=== PATIENT | female | born 1980 | race Caucasian/White ===

== ENCOUNTER 2017-04-01 16:38 | Emergency (ER) | payer BC, OTHER ==
[2017-04-01 18:34] LABS: #Basophils 0.1 thou/uL (0.0-0.2); #Eosinphils 0.3 thou/uL (0.0-0.7); #Lymphocytes 2.2 thou/uL (1.20-3.40); #Monocytes 0.6 thou/uL (0.11-0.59); #Neutrophils 4.7 thou/uL (1.40-6.50); %Basophils 0.8 % (0.0-1.0); %Eosinophils 4.4 % (0.0-10.0); %Lymphocytes 28.3 % (21.0-51.0); %Monocytes 7.3 % (0.0-10.0); %Neutrophils 59.1 % (42.0-75.0); Hemoglobin 13.3 g/dL (12.0-16.0); Mean Corpuscular HGB CONC 32.8 g/dL (32.0-36.0); Mean Corpuscular Hemoglobin 30.2 pg (27.0-31.0); Mean Corpuscular Volume 92.1 fl (81.0-99.0); Mean Platelet Volume 7.2 fL (7.4-10.4); Platelet Count 252 thou/uL (130-400); RBC Distribution Width 11.6 % (11.5-14.5); Red Blood Cell (RBC) Count 4.42 mill/uL (4.20-5.40); White Blood Cell (WBC) Count 7.9 thou/uL (4.8-10.8)
[2017-04-01 18:40] LABS: BHCG - Serum Negative (NEGATIVE); Pregs Control Background? CLEAR/WHITE (CLR/WHITE); Pregs Control Bar Appear? YES (CONTROL BAR)
[2017-04-01] MEDS ORDERED: HYDROcodone/Acetaminophen 5/325 mg Tablet ONE (21:22)
--- NOTE | 2017-04-01 22:54 | ULT ---
PELVIC ULTRASOUND: 04/01/17 Endovaginal ultrasound of pelvis performed. HISTORY: Vaginal bleeding. The uterus is retroverted. The uterus is unremarkable in appearance. Endometrial strip appears normal measured at 4 to 5 mm. Both ovaries show follicular cysts and appear unremarkable. Color doppler wit h spectral analysis demonstrates normal and equal blood flow to both ovaries. No fluid seen. IMPRESSION: 1. Retroverted uterus. 2. Unremarkable pelvic ultrasound. POS: [facility]
== END 2017-04-01 23:45 | disposition home or self-care (01) ==
LOC: ERS 16:38
DX: N94.6 Dysmenorrhea, unspecified (principal)
CPT/HCPCS: 36415; 76856; 84703; 85025; 86850; 86900; 86901; 93976

== ENCOUNTER 2019-05-06 11:41 | Emergency (ER) | payer BC, SELFPAY ==
[2019-05-06] MEDS ORDERED: Ondansetron PF 4 MG/2 ML Vial ONE (12:15)
[2019-05-06] MEDS ORDERED: Ketorolac Tromethamine 30 MG/ML VIAL ONE (12:15)
[2019-05-06 12:36] LABS: Hemoglobin 14.6 g/dL (12.0-16.0); Mean Corpuscular HGB CONC 33.3 g/dL (32.0-36.0); Mean Corpuscular Hemoglobin 31.6 pg (27.0-31.0); Mean Corpuscular Volume 95.1 fL (78.0-98.0); Mean Platelet Volume 8.3 fL (7.4-10.4); Platelet Count 212 thou/uL (130-400); RBC Distribution Width 11.8 % (11.5-14.5); White Blood Cell (WBC) Count 7.1 thou/uL (4.8-10.8)
[2019-05-06 12:51] LABS: Eosinophils 1 % (0-10); Hypersemented Neutrophil SLIGHT; Large Platelets SLIGHT; Lymphocytes 29 % (21-51); MDiff Complete? YES; Monocytes 1 % (0-10); Neutrophil 69 % (42-75); Platelet Morphology Comment Appears Adequate
[2019-05-06 12:56] LABS: ALT (SGPT) 23 U/L (8-55); AST (SGOT) 19 U/L (5-34); Albumin 4.1 g/dL (3.5-5.0); Alkaline Phosphatase 48 U/L (40-110); Anion Gap 11 mmol/L (10-20); BUN (Urea Nitrogen) 11 mg/dL (7.0-18.7); Bilirubin, Total 2.1 mg/dL (0.2-1.2); Calc. Creatinine Clearance 0 mL/min (70-130); Calcium 9.4 mg/dL (7.8-10.44); Carbon Dioxide 21 mmol/L (22-29); Chloride 108 mmol/L (98-107); Estimated GFR-MDRD 75; Glucose 84 mg/dL (70-105); Lipase 40 U/L (8-78); Potassium 4.3 mmol/L (3.5-5.1); Protein, Total 7.1 g/dL (6.0-8.3); Sodium 136 mmol/L (136-145)
[2019-05-06 13:53] LABS: Bilirubin Negative (Negative); Blood, Urine 3+ (Negative); Clarity Turbid (Clear); Glucose, Urine (Dipstick) Normal (Negative); Leukocyte 75 Leu/uL (Negative); Nitrite Negative (Negative); Protein, Urine (Dipstick) Negative (Neg-Trace); RBC/HPF Greater than 50 HPF (0-3); Squamous Epithelial None Seen HPF (0-3); Urobilinogen Normal mg/dL (Less than 2)
[2019-05-06 13:55] LABS: Pregnancy Test - Urine (BHCG) Negative (Negative); Pregu Control Background? CLEAR/WHITE (CLR/WHITE); Pregu Control Bar Appear? YES (CONTROL BAR); Specific Gravity 1.012 (1.002-1.036)
[2019-05-06 14:02] LABS: Bacteria/HPF None Seen HPF (None Seen)
== END 2019-05-06 13:45 | disposition home or self-care (01) ==
LOC: ERS 11:41
DX: N93.9 Abnormal uterine and vaginal bleeding, unspecified (principal); R42 Dizziness and giddiness; D64.9 Anemia, unspecified
CPT/HCPCS: 36415; 80053; 81003; 81015; 81025; 83690; 85025; 86850; 86900; 86901; 93005; 96361; 96374; 96375; J1885; J2405

== ENCOUNTER 2019-08-07 05:35 | Day surgery (SDC) | payer OTHER ==
[2019-08-03 13:38] VITALS: BMI 27.4
[2019-08-03 14:30] LABS: Hemoglobin 15.2 g/dL (12.0-16.0); Mean Corpuscular HGB CONC 32.5 g/dL (32.0-36.0); Mean Corpuscular Hemoglobin 30.2 pg (27.0-31.0); Mean Corpuscular Volume 92.8 fL (78.0-98.0); Mean Platelet Volume 7.2 fL (7.4-10.4); Platelet Count 242 thou/uL (130-400); RBC Distribution Width 11.6 % (11.5-14.5); Red Blood Cell (RBC) Count 5.02 mill/uL (4.20-5.40); White Blood Cell (WBC) Count 9.3 thou/uL (4.8-10.8)
[2019-08-03 14:38] LABS: BHCG - Serum Negative (NEGATIVE); Pregs Control Background? CLEAR/WHITE (CLR/WHITE); Pregs Control Bar Appear? YES (CONTROL BAR)
[2019-08-04 19:51] LABS: SARS-CoV-2 MS2 Positive; SARS-CoV-2 N Gene Negative; SARS-CoV-2 S Gene Negative; SARS-CoV-2 orf1ab Negative
--- NOTE | 2019-08-06 09:34 | HP ---
PRESENTING COMPLAINT: Menorrhagia, dysmenorrhea, and stress urinary incontinence. SCHEDULED PROCEDURE: Total laparoscopic hysterectomy, right salpingectomy, and possible mid urethral sling with cystourethroscopy. HISTORY OF PRESENT ILLNESS: Ms. Cordero is a 38-year-old 5, para 3, AB 2, ectopic 1, status post left salpingectomy, status post bilateral tubal ligation. She has a long history of menorrhagia and heavy periods, have been unresponsive to medical management. The patient desires definitive management. Of note, the patient mentioned to the office and preop is that something was going to be done to her bladder for incontinence. Upon review of the chart, the patient did not mention incontinence since 2017 in her annual exam, however, her exam and description of her incontinence were consistent with stress urinary incontinence. Incontinence will be further characterized and discussed at the a.m. of surgery, and we will likely proceed with mid urethral sling with Advantage Fit and cystourethroscopy. SOCIAL MEDIA STRATEGIST HISTORY: As noted. No history of dysplasia. Negative Pap in May of 2019. PAST MEDICAL HISTORY: None. PAST SURGICAL HISTORY: As noted in the SOCIAL MEDIA STRATEGIST HPI. ALLERGIES: DENIES. MEDICATIONS: T3 thyroid provided by outside source. SOCIAL HISTORY: Denies tobacco, alcohol, or IV drug abuse. FAMILY HISTORY: Noncontributory. REVIEW OF SYSTEMS: Noncontributory. PHYSICAL EXAMINATION: GENERAL: White female, 5 feet, 2 inches, weight 160, BMI 29. VITAL SIGNS: Blood pressure 122/86, respirations 18, and pulse 85. HEENT: Within normal limits. LUNGS: Clear to auscultation bilaterally. HEART: Regular rate and rhythm. BREASTS: Without masses bilaterally. ABDOMEN: Soft, nontender. No rebound or guarding. PELVIC: Vulva, lesions. Vagina, hypermobile. Urethra leakage with cough and Valsalva noted in 2017. Cervix, parous. Uterus, anteverted and boggy and slightly tender. Adnexa, no masses bilaterally. EXTREMITIES: No clubbing, cyanosis, or edema. IMPRESSION: Retroverted uterus, probable adenomyosis. Persistent dysmenorrhea and menorrhagia with history of [id number] stress incontinence. PLAN: Total laparoscopic hysterectomy, right salpingectomy. The patient has had previous left salpingectomy, possible mid urethral sling with cystourethroscopy. The patient understands risks and benefits of procedure, administered appropriate antibiotic and DVT prophylaxis. Job ID: [id number]
[2019-08-07] MEDS ORDERED: HYDROmorphone 0.5 MG/0.5 ML SYRINGE ONE (06:15)
[2019-08-07] MEDS ORDERED: Fentanyl 100 MCG/2 ML VIAL ONE ×2 (06:15→09:35)
[2019-08-07] MEDS ORDERED: Lidocaine 2% Jelly 5 ML TUBE ONE (06:15)
[2019-08-07] MEDS ORDERED: Midazolam HCl 2 mg/2 ml Vial ONE (06:15)
[2019-08-07] MEDS ORDERED: Famotidine/PF 20 mg/2ml Vial ONE (06:25)
[2019-08-07] MEDS ORDERED: Gabapentin 300 MG CAP ONE (06:25)
[2019-08-07] MEDS ORDERED: CeleCOXIB 100 MG CAP ONE (06:25)
[2019-08-07] MEDS ORDERED: Bupivacaine PF 0.5% 30 ML VIAL ONE (06:39)
[2019-08-07] MEDS ORDERED: Lidocaine 1% w/Epinephrine 1:100K 20 ML VIAL ONE (06:39)
[2019-08-07] MEDS ORDERED: SUGAMMADEX SODIUM 200 MG/2 ML VIAL ONE (08:52)
[2019-08-07] MEDS ORDERED: Simethicone Chewable 80 MG TAB PO PRN (09:01)
[2019-08-07] MEDS ORDERED: Bisacodyl 10 MG SUPP PR PRN (09:01)
[2019-08-07] MEDS ORDERED: diphenhydrAMINE 25 MG CAP PO PRN (09:01)
[2019-08-07] MEDS ORDERED: Promethazine HCl 25 MG/ML VIAL IM PRN (09:01)
[2019-08-07] MEDS ORDERED: Zolpidem Tartrate 5 MG TAB PO PRN (09:01)
[2019-08-07] MEDS ORDERED: HYDROcodone/Acetaminophen 5/325 mg Tablet PO PRN (09:01)
[2019-08-07] MEDS ORDERED: CALCIUM CARB PO SCH (10:00)
[2019-08-07] MEDS ORDERED: PRASTERONE PO SCH (10:00)
[2019-08-07] MEDS ORDERED: Ondansetron PF 4 MG/2 ML Vial ONE ×2 (10:03→10:30)
[2019-08-07] MEDS ORDERED: Lidocaine 1% PF 5 ML VIAL ONE (10:30)
[2019-08-07] MEDS ORDERED: Glycopyrrolate 0.2 MG/ML 5 ML SYRINGE ONE (10:30)
[2019-08-07] MEDS ORDERED: Rocuronium Bromide 10 MG/ML (10ML VIAL) ONE (10:30)
[2019-08-07] MEDS ORDERED: PHENYLEPHRINE-NS 100 MCG/ML 10 ML SYRINGE ONE (10:30)
[2019-08-07] MEDS ORDERED: Esmolol 100 MG/10 ML VIAL ONE (10:30)
[2019-08-07] MEDS ORDERED: Dexamethasone 20 MG/5 ML VIAL ONE (10:30)
[2019-08-07] MEDS ORDERED: PROPOFOL 200 MG/20 ML VIAL ONE (10:30)
[2019-08-07] MEDS: Ketorolac Tromethamine 30 MG/ML VIAL IVP SCH ×2 (10:48→18:25)
[2019-08-07] MEDS: Sodium Chloride 0.9% 1,000 ML IV SCH ×2 (10:56→18:25)
--- NOTE | 2019-08-07 14:01 | OP ---
DATE OF PROCEDURE: 08/07/2019 PREOPERATIVE DIAGNOSES: Dysmenorrhea, menorrhagia, suspected adenomyosis. POSTOPERATIVE DIAGNOSES: Dysmenorrhea, menorrhagia, suspected adenomyosis. PROCEDURES PERFORMED: Total laparoscopic hysterectomy and bilateral salpingectomy. RN FORENSIC: Tiera Pollack PA-C ESTIMATED BLOOD LOSS: 50 mL. COMPLICATIONS: None. DRAINS: Pena to gravity. MEDICATIONS: 2 g of Ancef preincision. DVT PROPHYLAXIS: SCDs. FINDINGS: 1. A 6-to-8-week size uterus with appearance consistent with adenomyosis. 2. Status post BTL bilaterally. 3. Normal-appearing ovaries bilaterally. 4. Hemostasis, clear urine. COUNTS: Correct at the end of the procedure. DISPOSITION: Recovery room in good condition. DESCRIPTION OF PROCEDURE: The patient was taken to the operating room. General endotracheal anesthesia was achieved without difficulty. Prepped and draped in dorsal lithotomy position. Weighted speculum was placed in the vagina. Cervix was identified and grasped with single-tooth tenaculum. Sounded to 8 cm. MADAN manipulator, 8 cm obturator, and 4 cm vaginal porter head were placed. Pena catheter was placed. Speculum and tenaculum were removed. The process control operator changed his clothes and turned attention to abdominal portion of the procedure. A 5 mL of Marcaine was injected in the superior aspect of the umbilicus. A 12 mm skin incision was made and Veress needle was placed inside the abdominal cavity. Insufflation was carried out with carbon dioxide for a maximum pressure of 15, volume approximately 3.5 L. A 12 mm balloon Sue trocar was placed without difficulty. Confirmation with entry into the peritoneal cavity without trauma to the underlying viscera and no adhesions were noted. The patient was placed in steep Trendelenburg, and right and left lateral da Chantal trocars were placed under direct visualization. Technical Services Representative port was placed in the right upper quadrant. Monopolar scissors was placed in the right hand and bipolar fenestrated forceps in the left. The mesosalpinx was coagulated and transected on the left, and the fallopian tube was removed up to the level of its ligation. It was sent for pathologic analysis. The broad ligament was then coagulated and transected along with the utero-ovarian, the round, and down to the level of the internal cervical os. Vesicouterine peritoneum was incised sharply off the lower uterine segment, cervix, and upper vagina, dissecting the bladder off these. The skeletonization of the uterine vessels was carried out on the left. These were coagulated and transected. Identical procedure was carried out on the patient's right. After this was accomplished, the vagina was entered anteriorly at 12 o'clock and extended from 12 to 3 and 12 to 9. The ureters were identified lateral to the surgical field. The incision was then taken from 3 to 6 and from 9 to 6 amputating the specimen. It was pulled out of the vagina to maintain pneumoperitoneum. Suction irrigation was carried out. Good hemostasis was noted throughout. The vagina was closed using a running continuous 2-0 PDS suture lock in a running manner from right to left and then back to the right. Suction irrigation was carried out. Good hemostasis was noted. Tisseel was applied across all surgical coto. The da Chantal instruments were removed. The da Chantal was undocked. The abdomen was deflated with carbon dioxide. Trocars were removed x4. Fascia of the umbilical trocar was reapproximated using a 0 Vicryl on a UR5 needle. Skin was reapproximated x4 using 4-0 Monocryl and Dermabond. The patient was awakened and extubated to recovery room in good condition. Job ID: [id number]
[2019-08-07] MEDS: Ondansetron PF 4 MG/2 ML Vial IVP PRN ×2 (14:32→21:46)
[2019-08-07] MEDS: Morphine 4 MG/ML VIAL SLOW IVP PRN ×2 (14:44→22:11)
[2019-08-08] MEDS: Ketorolac Tromethamine 30 MG/ML VIAL IVP SCH (00:02)
[2019-08-08] MEDS: Sodium Chloride 0.9% 1,000 ML IV SCH ×2 (01:57→08:51)
[2019-08-08] MEDS: Ondansetron PF 4 MG/2 ML Vial IVP PRN (05:26)
[2019-08-08] MEDS ORDERED: Ibuprofen 800 MG TAB PO SCH (06:00)
[2019-08-08] MEDS ORDERED: Liothyronine Sodium 5 MCG TAB PO SCH (06:00)
[2019-08-08] MEDS: HYDROcodone/Acetaminophen 5/325 mg Tablet PO PRN ×2 (06:24→10:30)
[2019-08-08 06:59] LABS: Hemoglobin 12.6 g/dL (12.0-16.0); Mean Corpuscular HGB CONC 32.3 g/dL (32.0-36.0); Mean Corpuscular Hemoglobin 30.3 pg (27.0-31.0); Mean Corpuscular Volume 93.7 fL (78.0-98.0); Mean Platelet Volume 7.3 fL (7.4-10.4); Platelet Count 211 thou/uL (130-400); RBC Distribution Width 11.5 % (11.5-14.5); Red Blood Cell (RBC) Count 4.15 mill/uL (4.20-5.40); White Blood Cell (WBC) Count 12.8 thou/uL (4.8-10.8)
[2019-08-08] MEDS ORDERED: Ferrous Sulfate 325 MG TAB PO SCH (08:00)
[2019-08-08 08:10] VITALS: BP 109/58; TEMP 98.7
--- NOTE | 2019-08-08 08:19 | PDOC.EVN ---
Event Note - Event Note Event Note: PT POD1 s/p SHAHAB GUERRERO. PT is doing well this morning. She has been up and ambulatory. Pain is well controlled. She is passing gas and voiding without difficulty. She denies and CP or SOB. VSS, afebrile. H&H are stable. PT resting comfortable in bed. Normal respiratory effort. Abdomen soft, incisions dry and intact. FROM in all extremities. No swelling in legs. PT neurologically at baseline. Pt pain well on POD1. PT meeting all post op goals. Plan for discharge this am with plan for office follow up in 2 weeks. Rx have been sent to pharmacy. Discharge planning discussed with patient.
[2019-08-08] MEDS ORDERED: Magnesium Oxide 400 MG TAB PO SCH (09:00)
[2019-08-08] MEDS ORDERED: Cholecalciferol (Vitamin D3) 400 UNITS TAB PO SCH (09:00)
[2019-08-08] MEDS ORDERED: Stress 600 With Zinc 1 TAB PO SCH (09:00)
[2019-08-08] MEDS ORDERED: Multivit, Therapeutic 1 TAB PO SCH (09:00)
== END 2019-08-08 11:00 | disposition home or self-care (01) ==
LOC: SDC 05:35 → 3SW 09:01 → SDC 08-08 11:00
PROVIDERS: ATTEND Obstetrics & Gynecology
PROC: 0UT04ZZ Resection of Right Ovary, Percutaneous Endoscopic Approach (ICD-10-PCS; principal; 2019-08-07)
PROC: 0UT94ZZ Resection of Uterus, Percutaneous Endoscopic Approach (ICD-10-PCS; principal; 2019-08-07)
PROC: 0UT54ZZ Resection of Right Fallopian Tube, Percutaneous Endoscopic Approach (ICD-10-PCS; principal; 2019-08-07)
DX: N72 Inflammatory disease of cervix uteri (principal); N87.9 Dysplasia of cervix uteri, unspecified; N80.0 Endometriosis of uterus; N39.3 Stress incontinence (female) (male); Z79.899 Other long term (current) drug therapy
CPT/HCPCS: 36415; 84703; 85027; 86850; 86900; 86901; 87635; 88307; J0690; J1100; J1170; J1885; J2001; J2250; J2270; J2405; J2550; J2704; J3010; S0020; S0028; U0003

== ENCOUNTER 2020-02-15 13:45 | Outpatient (CLI) | payer BC, MEDICAID ==
--- NOTE | 2020-02-15 14:14 | ULT ---
EXAM: Ultrasound left axilla PROVIDED CLINICAL HISTORY: History COMPARISON: None FINDINGS: Limited sonographic interrogation was performed of the left axilla. There is a 3-4 mm focus of dimini shed echogenicity involving the subcutaneous adipose layer in the region of palpable concern. The remainder of the interrogated soft tissues of the left axilla appear normal. IMPRESSION: 4 mm hypoechoic mass within the subcutaneous adipose layer in the region of palpable concern, the son ographic appearance of which is nonspecific. Consider sebaceous cyst.
== END 2020-02-15 13:46 | disposition home or self-care (01) ==
LOC: BICULT 13:45
PROVIDERS: ATTEND Obstetrics & Gynecology
DX: R22.2 Localized swelling, mass and lump, trunk (principal)
CPT/HCPCS: 76999